=== PATIENT | female | born 1985 | race Caucasian/White ===

== ENCOUNTER 2018-09-06 10:32 | Inpatient (IN) | payer OTHER ==
[2018-09-06] MEDS ORDERED: PITOCin/NS 20 UNIT/1000ML DRIP 20,000 MILLIUNITS/1,000 ML BAG IV ONE (11:04)
[2018-09-06] MEDS ORDERED: LACTATED RINGERS 1,000 ML ONE (11:08)
[2018-09-06] MEDS ORDERED: CYTOTEC ONE ×2 (11:37→11:39)
[2018-09-06] MEDS ORDERED: SUBLIMAZE IV PRN (11:46)
[2018-09-06] MEDS ORDERED: NARCAN 0.4 MG/1 ML IV PRN (11:46)
[2018-09-06] MEDS ORDERED: TUCKS PAD TP PRN (11:46)
[2018-09-06] MEDS ORDERED: MINERAL OIL PO PRN (11:46)
[2018-09-06] MEDS ORDERED: DULCOLAX PR PRN (11:46)
[2018-09-06] MEDS ORDERED: ZOFRAN IV PRN ×2 (11:46)
[2018-09-06] MEDS ORDERED: PHENERGAN PR PRN (11:46)
[2018-09-06] MEDS ORDERED: CYTOTEC PR ONE (11:46)
[2018-09-06] MEDS ORDERED: STADOL IV PRN (11:46)
[2018-09-06] MEDS ORDERED: XYLOCAINE 2% INFILTRATI ONE (11:46)
[2018-09-06] MEDS ORDERED: PERCOCET 5/325 PO PRN (11:46)
[2018-09-06] MEDS ORDERED: MILK OF MAGNESIA PO PRN (11:46)
[2018-09-06] MEDS ORDERED: TORADOL IV PRN (11:46)
[2018-09-06] MEDS ORDERED: TYLENOL PO PRN (11:46)
[2018-09-06] MEDS ORDERED: BENADRYL PO PRN (11:46)
[2018-09-06] MEDS ORDERED: NORCO 5/325 PO PRN (11:46)
[2018-09-06] MEDS ORDERED: BRETHINE IVP PRN (11:46)
[2018-09-06] MEDS ORDERED: BRETHINE SUB-Q PRN (11:46)
[2018-09-06] MEDS ORDERED: LANSINOH TP PRN (11:46)
[2018-09-06] MEDS ORDERED: PHENERGAN PO PRN ×2 (11:46)
--- NOTE | 2018-09-06 11:58 | History and Physical Report ---
History of Present Illness Date of examination: 09/06/18 Date of admission: 09/06/18 10:32 Chief complaint: contreactions History of present illness: This is a 32 yo EDC 09/15/18 at 38+5 weeks here for contractions. Patient of Premier with course consistent with UTi treated. BV + treated and GBS neg. Past History Past Medical History: no pertinent history Past Surgical History: no surgical history Family/Genetic History: none Social history: no significant social history, . denies: smoking, alcohol abuse, prescription drug abuse - Obstetrical History Expected Date of Delivery: 09/15/18 Actual Gestation: 38 Week(s) 5 Day(s) : 2 Para: 1 Hx # Term Pregnancies: 1 Number of Pregnancies: 0 Spontaneous Abortions: 0 Induced : 0 Number of Living Children: 1 Medications and Allergies Allergies Allergy/AdvReac Type Severity Reaction Status Date / Time No Known Allergies Allergy Verified 03/02/13 02:48 Home Medications Medication Instructions Recorded Confirmed Last Taken Type Ibuprofen [Motrin] 600 mg PO Q8H PRN #30 tablet 09/06/18 Unknown Rx oxyCODONE /ACETAMINOPHEN [Percocet 1 tab PO Q6HR PRN #30 tablet 09/06/18 Unknown Rx 5/325] Active Meds: Active Medications Acetaminophen (Tylenol) 650 mg PO Q4H PRN PRN Reason: Pain MILD(1-3)/Fever >100.5/ORTIZ Acetaminophen/Hydrocodone Bitart ([place] 5/325) 2 each PO Q6H PRN PRN Reason: Pain, Moderate (4-6) Bisacodyl (Dulcolax) 10 mg MD BID PRN PRN Reason: Constipation Butorphanol Tartrate (Stadol) 2 mg IV Q2H PRN PRN Reason: Pain , Severe (7-10) Diphenhydramine HCl (Benadryl) 25 mg PO Q6H PRN PRN Reason: Itching Diphtheria/Tetanus/Acell Pertussis (Boostrix) 0.5 ml IM .ONCE ONE Stop: 09/07/18 11:47 Docusate Sodium (Colace) 100 mg PO BID ANGELINA Ephedrine Sulfate (Ephedrine Sulfate) 10 mg IV Q2M PRN PRN Reason: Hypotension Fentanyl (Sublimaze) 100 mcg IV Q2H PRN PRN Reason: Labor Pain Lactated Ringer's (Lactated Ringers) 1,000 mls @ 125 mls/hr IV DIRECT ANGELINA Oxytocin/Sodium Chloride (Pitocin/Ns 20 Unit/1000ml Drip) 20 units in 1,000 mls @ 125 mls/hr IV DIRECT ANGELINA Oxytocin/Sodium Chloride (Pitocin/Ns 20 Unit/1000ml Drip) 20 units in 1,000 mls @ 250 mls/hr IV DIRECT ANGELINA Oxytocin/Sodium Chloride (Pitocin/Ns 30 Unit/500ml) 30 units in 500 mls @ 1 mls/hr IV TITR ANGELINA; Protocol Oxytocin/Sodium Chloride (Pitocin/Ns 30 Unit/500ml) 30 units in 500 mls @ 0 mls /hr IV TITR ANGELINA; Protocol Ibuprofen (Motrin) 600 mg PO Q6H ANGELINA Ketorolac Tromethamine (Toradol) 30 mg IV Q6H PRN PRN Reason: Pain, Moderate (4-6) Stop: 09/11/18 11:45 Lidocaine (Xylocaine 2%) 20 ml INFILTRATI ONCE ONE Stop: 09/06/18 11:47 Magnesium Hydroxide (Milk Of Magnesia) 30 ml PO HS PRN PRN Reason: Constipation Measles/Mumps/Rubella Vaccine Live (M-M-R Ii Vaccine) 0.5 ml SUB-Q .ONCE ONE Stop: 09/07/18 11:47 Mineral Oil (Mineral Oil) 30 ml PO QHS PRN PRN Reason: Constipation Misoprostol (Cytotec) 1,000 mcg MD ONCE ONE Stop: 09/06/18 11:47 Multi-Ingredient Ointment (Lansinoh) 1 applic TP PRN PRN PRN Reason: Sore Nipples Multivitamins/Iron/Calcium ( Vitamin) 1 each PO QDAY [facility] Naloxone HCl (Narcan 0.4 Mg/1 Ml) 0.1 mg IV Q2MIN PRN PRN Reason: Res Rate </= 8 or 02 SAT < 92% Ondansetron HCl (Zofran) 4 mg IV Q8H PRN PRN Reason: Nausea And Vomiting Ondansetron HCl (Zofran) 4 mg IV Q8H PRN PRN Reason: Nausea And Vomiting Oxycodone/Acetaminophen (Percocet 5/325) 1 tab PO Q6H PRN PRN Reason: Pain, Moderate (4-6) Promethazine HCl (Phenergan) 25 mg MD Q6H PRN PRN Reason: Nausea And Vomiting Promethazine HCl (Phenergan) 25 mg PO Q6H PRN PRN Reason: Nausea And Vomiting Promethazine HCl (Phenergan) 25 mg PO Q6H PRN PRN Reason: Nausea And Vomiting Sodium Chloride (Sodium Chloride Flush Syringe 10 Ml) 10 ml IV PRN NR Terbutaline Sulfate (Brethine) 0.25 mg SUB-Q ONCE PRN PRN Reason: Hyperstimulation/Hypertonicity Terbutaline Sulfate (Brethine) 0.25 mg IVP ONCE PRN PRN Reason: Hyperstimulation/Hypertonicity Witch Shikha/Glycerin (Tucks Pad) 1 each TP PRN PRN PRN Reason: Hemorrhoid/cleansing/soothing Review of Systems All systems: negative Genitourinary: contractions - Vital Signs Vital signs: Vital Signs Pulse BP 97 H 119/87 09/06/18 11:31 09/06/18 11:31 Temp Pulse Resp BP Pulse Ox 81 111/68 09/06/18 11:51 09/06/18 11:51 - Physical Exam Breasts: Positive: normal Cardiovascular: Regular rate, Normal S1 Lungs: Positive: Clear to auscultation, Normal air movement Abdomen: Positive: normal appearance, soft, normal bowel sounds. Negative: distention, tenderness, guarding Genitourinary (Female): Positive: normal external genitalia, normal perenium Vulva: both: normal Vagina: Positive: normal moisture Uterus: Positive: normal size Deep Tendon Reflex Grade: Normal +2 - Obstetrical FHR: category 1 Uterine Contraction Monitor Mode: Palpation Cervical Dilatation: 8 Cervical Effacement Percentage: 100 station: -1 Uterine Contraction Pattern: Regular Uterine Tone Measurement Phase: Contraction Uterine Contraction Intensity: Strong/Firm Results All other labs normal. Assessment and Plan A/P IUP 38+5 weeks Term IVF, labs offer epidural GBS neg -no IP ab needed expect vaginal delivery
[2018-09-06] MEDS ORDERED: SODIUM CHLORIDE FLUSH SYRINGE 10 ML IV NR (12:00)
[2018-09-06] MEDS ORDERED: PITOCin/NS 20 UNIT/1000ML DRIP 20 UNITS/1,000 ML BAG IV SCH ×2 (12:00)
[2018-09-06] MEDS ORDERED: PITOCin/NS 30 UNIT/500ML 30 UNITS/500 ML BAG IV SCH ×2 (12:00)
[2018-09-06] MEDS ORDERED: LACTATED RINGERS 1,000 ML IV SCH (12:00)
--- NOTE | 2018-09-06 12:01 | Procedure Note ---
OB Delivery Note - Delivery Date of Delivery: 09/06/18 Surgeon: ARPIT VALERIO Estimated blood loss: 500cc - Vaginal Delivery presentation: vertex Delivery position: OA Delivery induction: none Delivery monitor: external FHT, external uterine Route of delivery: Delivery placenta: spontaneous Delivery cord: 3 umbilical vessels Episiotomy: none Delivery laceration: 1st degree Delivery repair: vicryl Anesthesia: local Delivery comments: Patient c/c/+1 and commenced to pushing a viable female infant at 1126 in OA presentation. The head delivered and shoulders easily with suction of nasopharynx and oropharynx placed on mom chest . Apgars 8 and 9. Weight 2795g=6 pounds 3 oz. Review of perineum revealed a first degree laceration repaired with 2-0 vicryl. EBL 500 cc She had some PP hemorrhage cytotec 1000 mg in rectum given. Excellent hemostasis. Patietn tolerated procedure well and bonding with baby. . - Infant A at 1 minute: 8 at 5 minutes: 8 Infant Gender: Female (6 pounds 3 oz.)
[2018-09-06 12:24] LABS: Hemoglobin 8.9 gm/dl (10.1-14.3); Mean Corpuscular HGB Conc 31 % (30-34); Mean Corpuscular Volume 63 fl (79-97); Platelet Count 237 K/mm3 (140-440); Red Blood Count 4.63 M/mm3 (3.65-5.03); Red Cell Distribution Width 17.9 % (13.2-15.2)
[2018-09-06] MEDS: IBUPROFEN PO SCH ×2 (15:02→21:37)
[2018-09-06] MEDS: COLACE PO SCH (21:37)
[2018-09-07] LABS: Hematocrit 20.4 % (30.3-42.9); Hemoglobin 6.4 gm/dl (10.1-14.3)
[2018-09-07] MEDS: IBUPROFEN PO SCH ×4 (03:52→21:45)
[2018-09-07] MEDS ORDERED: BOOSTRIX IM ONE (06:00)
--- NOTE | 2018-09-07 07:14 | Progress Note ---
Assessment and Plan A/P POD1 s/p chronic acute anemia iron tid close monitor of vs low grade temp x 1 100.2 will reevalaute and if spikes will consider fever w/u Subjective - Subjective Date of service: 09/07/18 Principal diagnosis: s/p Interval history: This is a 32 yo EDC 09/15/18 at 38+5 weeks here for contractions. Patient of Premier with course consistent with UTi treated. BV + treated and GBS neg. Patient reports: appetite normal, voiding normally, pain well controlled, flatus, ambulating normally : doing well Objective - Vital Signs Latest vital signs: Vital Signs Temp Pulse Resp BP BP BP Pulse Ox 09/07/18 00:19 98.6 F 71 20 104/53 98 09/06/18 20:30 99 F 71 18 108/57 98 09/06/18 16:50 99.2 F 18 111/61 09/06/18 14:00 100.2 F H 72 18 118/65 99 09/06/18 13:43 79 111/68 09/06/18 13:40 98.8 F 18 09/06/18 13:24 89 116/70 09/06/18 13:10 81 119/72 09/06/18 12:55 81 131/74 09/06/18 12:52 71 100 09/06/18 12:47 71 100 09/06/18 12:42 72 127/61 100 09/06/18 12:40 72 90 09/06/18 12:37 83 100 09/06/18 12:32 91 H 100 09/06/18 12:30 97.4 F L 20 09/06/18 12:27 86 100 09/06/18 12:25 92 H 71 L 09/06/18 12:22 105 H 100 09/06/18 12:17 101 H 100 09/06/18 12:11 93 H 141/63 09/06/18 11:51 81 111/68 09/06/18 11:46 83 104/67 09/06/18 11:41 86 111/68 09/06/18 11:36 87 108/67 09/06/18 11:31 97 H 119/87 09/06/18 10:40 98.0 F 20 Intake and Output 09/06/18 09/06/18 09/07/18 15:59 23:59 07:59 Intake Total 480 120 Output Total 1100 Balance -620 120 Intake: Oral 240 Intake, Free Water 240 120 Output: Urine 1100 Void 1100 Other: Total, Intake Amount 240 Total, Output Amount 400 # Voids Void 1 1 Weight 61.235 kg Estimated Blood Loss 500 - Exam Breasts: Present: normal Cardiovascular: Present: Regular rate, Normal S1 Lungs: Present: Clear to auscultation, Normal air movement Abdomen: Present: normal appearance, soft, normal bowel sounds. Absent: distention, tenderness, guarding Vulva: both: normal Uterus: Present: normal, firm, fundal height below umbilicus. Absent: bogginess, tenderness Extremities: Present: normal Deep Tendon Reflex Grade: Normal +2 - Labs Labs: Abnormal lab results 09/06/18 09/06/18 Range/Units 23:02 Unknown Hgb 6.4 L 8.9 L (10.1-14.3) gm/dl Hct 20.4 L D 29.0 L (30.3-42.9) % MCV 63 L (79-97) fl MCH 19 L (28-32) pg RDW 17.9 H (13.2-15.2) %
[2018-09-07] MEDS ORDERED: FEOSOL PO SCH (10:00)
[2018-09-07] MEDS: COLACE PO SCH ×2 (10:08→21:45)
[2018-09-07] MEDS: PRENATAL VITAMIN PO SCH (10:08)
[2018-09-07] MEDS ORDERED: M-M-R II VACCINE SUB-Q ONE (12:30)
[2018-09-07] MEDS ORDERED: DERMOPLAST TP PRN (12:51)
[2018-09-07] MEDS: FEOSOL PO SCH ×2 (14:21→19:53)
[2018-09-08] MEDS: IBUPROFEN PO SCH ×3 (03:42→09:57)
--- NOTE | 2018-09-08 08:12 | Progress Note ---
Assessment and Plan A: PPD#2 s/p at term, Acute on chronic anemia-asymptomatic P: Plan to discharge today with follow up in [address] Kemp. Subjective - Subjective Date of service: 09/08/18 Principal diagnosis: s/p Interval history: Pt is asking to be discharged. She denies any dizziness with ambulation. Patient reports: appetite normal, voiding normally, pain well controlled, ambulating normally [place]: doing well Objective - Vital Signs Latest vital signs: Vital Signs Temp Pulse Resp BP BP Pulse Ox 09/08/18 03:42 18 09/07/18 23:46 98.6 F 78 18 109/63 98 09/07/18 16:10 98.1 F 81 20 104/68 09/07/18 08:20 98.2 F 68 20 105/63 Intake and Output 09/07/18 09/08/18 09/08/18 22:59 06:59 14:59 Intake Total 120 600 Balance 120 600 Intake: Oral 120 240 Intake, Free Water 360 Other: Total, Intake Amount 120 240 # Voids Void 2 - Exam Breasts: Present: deferred Cardiovascular: Present: Regular rate Lungs: Present: Clear to auscultation Abdomen: Present: soft Uterus: Present: fundal height below umbilicus Extremities: Present: normal
--- NOTE | 2018-09-08 08:12 | Discharge Summary ---
Providers - Providers Date of Admission: 09/06/18 11:26 Date of discharge: 09/08/18 Attending physician: ARPIT VALERIO MD Primary care physician: ARPIT VALERIO MD Hospitalization Reason for admission: active labor Delivery: Procedure details: Please see delivery note. Episiotomy: none Laceration: 1st degree Other procedures: none complications: none Discharge diagnosis: IUP at term delivered baby: female Hospital course: Patient was admitted in active labor went on to have a spontaneous vaginal delivery which she tolerated well. Her post course was complicated by acute on chronic anemia with the patient remained asymptomatic. She will follow up in the office in [address] Kemp. Condition at discharge: Stable Disposition: DC-01 TO HOME OR SELFCARE - Discharge Diagnoses (1) Term of female Status: Acute (2) Anemia Status: Acute Qualifiers: Iron deficiency anemia type: chronic blood loss Plan - Discharge Medications Prescriptions: Docusate Sodium [Colace] 100 mg PO BID PRN #60 capsule PRN Reason: Constipation Ferrous Sulfate [Feosol 325 MG tab] 325 mg PO TID #90 tablet Ibuprofen [Motrin] 600 mg PO Q8H PRN #30 tablet PRN Reason: Pain oxyCODONE /ACETAMINOPHEN [Percocet 5/325] 1 tab PO Q6HR PRN #30 tablet PRN Reason: Pain - Provider Discharge Summary Activity: routine, no sex for 6 weeks, no heavy lifting 4 weeks, no strenuous exercise Diet: routine Instructions: routine Additional instructions: [] Smoking cessation referral if applicable(refer to patient education folder for contact #) [] Refer to [facility]'s [facility] Booklet Call your doctor immediately for: * Fever > 100.5 * Heavy vaginal bleeding ( >1 pad per hour) * Severe persistent headache * Shortness of breath * Reddened, hot, painful area to leg or breast * Drainage or odor from incision. * Keep incision clean and dry at all times and follow doctor's instructions regarding bathing/showering - Follow up plan Follow up: CHUNG KEMP MD [Staff Physician] - 09/22/18 (Please call to schedule laceration check, hemorrhoid check )
[2018-09-08] MEDS: FEOSOL PO SCH (09:58)
[2018-09-08] MEDS: PRENATAL VITAMIN PO SCH (09:58)
[2018-09-08] MEDS: COLACE PO SCH (09:58)
[2018-09-08 12:45] VITALS: BP 119/75
== END 2018-09-08 15:00 | disposition home or self-care (01) | DRG 807 ==
LOC: UNDOADMIN 10:32 → LD 10:32 → OB 14:15
PROVIDERS: ADMIT Obstetrics & Gynecology; ATTEND Obstetrics & Gynecology
PROC: 10E0XZZ Delivery of Products of Conception, External Approach (ICD-10-PCS; principal; 2018-09-06)
PROC: 0HQ9XZZ Repair Perineum Skin, External Approach (ICD-10-PCS; 2018-09-06)
PROC: 3E0234Z Introduction of Serum, Toxoid and Vaccine into Muscle, Percutaneous Approach (ICD-10-PCS; 2018-09-07)
DX: O99.02 Anemia complicating childbirth (principal); Z37.0 Single live birth; D50.0 Iron deficiency anemia secondary to blood loss (chronic); O70.0 First degree perineal laceration during delivery; Z3A.38 38 weeks gestation of pregnancy; Z23 Encounter for immunization
CPT/HCPCS: 36415; 85014; 85018; 85027; 86592; 86850; 86900; 86901; G0378; A6250; J2590; J7120